=== PATIENT | female | born 2000 | race Caucasian/White ===

== ENCOUNTER 2024-10-26 23:42 | Emergency (ER) | payer SELFPAY ==
[2024-10-27] MEDS ORDERED: ONDANSETRON 4 MG/2 ML VIAL ONE (00:33)
[2024-10-27] MEDS ORDERED: NA CHLORIDE 0.9% 1,000 ML ONE (00:34)
[2024-10-27 00:53] LABS: Specific Gravity 1.029 (1.005-1.030)
[2024-10-27 00:56] LABS: Specific Gravity 1.029 (1.005-1.030); Urine Bacteria 20-50 /HPF (<20); Urine Bilirubin NEGATIVE (Negative); Urine Blood Negative (Negative); Urine Clarity Extremely Turbid (Clear); Urine Color Yellow (Yellow); Urine Culture Reflex Order REFLEXED; Urine Glucose NEGATIVE (Negative); Urine Ketones NEGATIVE (Negative); Urine Microscopic Reflex YN ORDER UMIC; Urine Mucus 2+ /HPF (None Seen); Urine Nitrite NEGATIVE (Negative); Urine Protein 1+ (Negative); Urine RBC <5 /HPF (None Seen); Urine Urobilinogen Normal (Normal); Urine WBC Clump Rare /HPF (None Seen)
[2024-10-27 01:00] LABS: Absolute Basophils 0.1 K/uL (0-0.5); Absolute Eosinophils 0.2 K/uL (0-0.5); Absolute Lymphocytes (CBC) 3.2 K/uL (0.7-4.9); Absolute Monocytes 0.7 K/uL (0.1-1.3); Absolute Neutrophil 3.6 K/uL (1.8-8.0); Basophils % 0.8 % (0-1.3); Hematocrit 39.4 % (36.0-45.0); Lymphocytes % 40.8 % (15.3-44.8); MCH 31.9 pg (27.0-35.0); MCHC 35.5 g/dL (32.0-36.0); MCV 89.8 fL (80-100); Monocytes % 9.4 % (3.3-12.3); Nucleated Red Blood Cells % 0.1 % (0-0); Platelets 305 thou/uL (152-406); RBC Red Blood Cell Count 4.39 M/uL (3.86-4.86); Red Cell Distribution Width 12.5 % (12.1-15.2)
[2024-10-27 01:05] LABS: Barbiturates NEGATIVE (NEGATIVE); Benzodiazepines NEGATIVE (NEGATIVE); Cocaine NEGATIVE (NEGATIVE); METHAMPHETAM NEGATIVE (NEGATIVE); Methadone NEGATIVE (NEGATIVE); Opiates NEGATIVE (NEGATIVE); Phencyclidine NEGATIVE (NEGATIVE); THC Cannibis POSITIVE (NEGATIVE)
[2024-10-27 01:16] LABS: Albumin 4.1 g/dL (3.4-5.0); Albumin/Globulin Ratio 1.2 (1.1-1.8); Anion Gap 9.3 mEq/L (5.0-15.0); Bilirubin Total 0.5 mg/dL (0.2-1.0); Globulin 3.4 g/dL (2.3-3.5); Potassium 3.3 mEq/L (3.5-5.1); Protein, Total 7.5 g/dL (6.4-8.2); Thyroid Stimulating Hormone 1.28 uIU/mL (0.358-3.740)
[2024-10-27 01:38] LABS: Influenza A Ag Negative; Influenza B Ag Negative; SARS-CoV-2 Antigen Rapid Res Negative (Negative)
[2024-10-27] MEDS ORDERED: CEFTRIAXONE 1000 MG/VIAL ONE (02:47)
[2024-10-27] MEDS ORDERED: droPERidol 5 MG/2 ML VIAL ONE (02:51)
[2024-10-27] MEDS ORDERED: DICYCLOMINE HCL 10 MG CAP ONE (02:51)
[2024-10-27] MEDS ORDERED: KETOROLAC 30 MG/ML INJ ONE (02:51)
[2024-10-27] MEDS ORDERED: PROMETHAZINE INJ 25 MG/ML AMP ONE (02:58)
--- NOTE | 2024-10-27 04:10 | ER ---
Nurse's Notes [facility] Name: Piero White Age: 24 yrs Sex: Female : 2000 Arrival Date: 10/26/2024 Time: 23:42 Bed 7 Private MD: Diagnosis: Acute viral gastroenteritis, nausea vomiting and diarrhea;UTI/ Urinary tract infection, site not specified;Hepatomegaly, not elsewhere classified Presentation: 10/27 00:09 Chief complaint: Patient states: nausea,vomiting, and diarrhea that started about a cp4 week ago. Coronavirus screen: Client denies travel out of the [place] in the last 14 days. At this time, the client does not indicate any symptoms associated with coronavirus-19. Ebola Screen: Patient negative for fever greater than or equal to 101.5 degrees Fahrenheit, and additional compatible Ebola Virus Disease symptoms Patient denies exposure to infectious person. Patient denies travel to an Ebola-affected area in the 21 days before illness onset. No symptoms or risks identified at this time. Initial Sepsis Screen: Does the patient meet any 2 criteria? No. Patient's initial sepsis screen is negative. Does the patient have a suspected source of infection? No. Patient's initial sepsis screen is negative. Risk Assessment: Do you want to hurt yourself or someone else? Patient reports no desire to harm self or others. Onset of symptoms was October 20, 2024. 00:09 Method Of Arrival: Ambulatory cp4 00:09 Acuity: NELSON 3 cp4 Triage Assessment: 00:10 General: Appears in no apparent distress. uncomfortable, Behavior is calm, cooperative, cp4 appropriate for age. Pain: Denies pain. EENT: No signs and/or symptoms were reported regarding the EENT system. Neuro: Level of Consciousness is awake, alert, obeys commands, Oriented to person, place, time, situation. Cardiovascular: Patient's skin is warm and dry. Respiratory: Airway is patent Respiratory effort is even, unlabored. GI: Abdomen is round non-distended, Bowel sounds present X 4 quads. Abd is soft and non tender X 4 quads. Reports diarrhea, nausea, vomiting. : No signs and/or symptoms were reported regarding the genitourinary system. Derm: No signs and/or symptoms reported regarding the dermatologic system. Musculoskeletal: No signs and/or symptoms reported regarding the musculoskeletal system. 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 - Infectious Disease History:: Denies. - Social history:: Smoking status: Patient denies any tobacco usage or history of. Screenin:14 [facility] ED Fall Risk Assessment (Adult) History of falling in the last 3 months, cp4 including since admission No falls in past 3 months (0 pts) Confusion or Disorientation No (0 pts) Intoxicated or Sedated No (0 pts) Impaired Gait No (0 pts) Mobility Assist Device Used No (0 pt) Altered Elimination No (0 pt) Score/Fall Risk Level 0 - 2 = Low Risk Oriented to surroundings, Maintained a safe environment, Assessed \T\ reinforced patient's understanding of fall precautions, Hourly rounding (assess needs \T\ fall precautionary measures) done. Abuse screen: Denies threats or abuse. Denies injuries from another. Nutritional screening: No deficits noted. Tuberculosis screening: No symptoms or risk factors identified. Assessment: 00:14 GI: Abdomen is round non-distended, Bowel sounds present X 4 quads. Abd is soft and non cp4 tender X 4 quads. Reports diarrhea, nausea, vomiting. Vital Signs: 00:09 BP 143 / 96; Pulse 84; Resp 18; Temp 98.6; Pulse Ox 98% ; Weight 136.08 kg; Height 5 cp4 ft. 10 in. ; Pain 0/10; 02:54 BP 114 / 98; Pulse 54; Resp 16; Pulse Ox 98% ; al5 03:02 BP 135 / 77; Pulse 87; Resp 18; Pulse Ox 98% ; cp4 03:30 BP 138 / 98; Pulse 61; Resp 16; Pulse Ox 100% ; al5 00:09 Body Mass Index 43.05 (136.08 kg, 177.8 cm) cp4 00:09 Pain Scale: Adult cp4 ED Course: 10/26 23:44 Patient arrived in ED. jj6 23:56 Berenice Narvaez PA-C [facility]. sb4 23:56 Ryan Manzano MD is Attending Physician. sb4 10/27 00:04 Charisse Young is Primary Nurse. cp4 00:10 Triage completed. cp4 00:10 Arm band placed on right wrist. Patient placed in waiting room. cp4 00:14 Bed in low position. Call light in reach. Side rails up X 1. cp4 00:14 No provider procedures requiring assistance completed. cp4 00:37 Initial lab(s) drawn, by me, sent to lab. Urine collected: clean catch specimen, navarro cp4 colored. Inserted saline lock: 20 gauge in left antecubital area, using aseptic technique. Blood collected. Flushed with 10 mL NS. 02:08 CT Abd/Pelvis - IV Contrast Only In Process Unspecified. EDMS 04:35 Provided Education on: clear liquid diet. cp4 04:35 intact, bleeding controlled, No redness/swelling at site. Pressure dressing applied. cp4 Administered Medications: 00:37 Drug: Ondansetron IVP 4 mg IVP once; over 2 minutes Route: IVP; Site: left antecubital; cp4 04:34 Follow up: Response: No adverse reaction cp4 00:37 Drug: NS 0.9% IV 1000 ml IV at 1 bolus Per protocol; to be given as a bolus over 60 cp4 minutes Route: IV; Rate: 1 bolus; Site: left antecubital; 04:34 Follow up: IV Status: Completed infusion cp4 02:51 Drug: NS 0.9% IV 1000 ml IV at 1 bolus Per protocol; to be given as a bolus over 60 cp4 minutes Route: IV; Rate: 1 bolus; Site: left antecubital; 04:33 Follow up: IV Status: Completed infusion cp4 02:51 Drug: Rocephin - Rocephin (cefTRIAXone) IVPB 1 grams IVPB once over 30 mins; (mix in 50 cp4 mL NS) Route: IVPB; Infused Over: 30 mins; Site: left antecubital; 04:33 Follow up: IV Status: Completed infusion cp4 02:56 Drug: Dicyclomine PO 20 mg PO once Route: PO; cp4 04:34 Follow up: Response: No adverse reaction cp4 02:56 Drug: Droperidol IVP 2.5 mg IVP once Route: IVP; Site: left antecubital; cp4 04:34 Follow up: Response: No adverse reaction cp4 02:56 Drug: Ketorolac IVP 30 mg IVP once Route: IVP; Site: left antecubital; cp4 04:34 Follow up: Response: No adverse reaction cp4 03:01 Drug: Promethazine IM 50 mg IM once Route: IM; Site: right ventrogluteal; cp4 04:33 Follow up: Response: No adverse reaction cp4 Medication: 00:14 VIS not applicable for this client. cp4 Outcome: 04:09 Discharge ordered by . sp4 04:35 Discharged to home ambulatory, cp4 04:35 Condition: stable 04:35 Discharge instructions given to patient, family, Instructed on discharge instructions, follow up and referral plans. medication usage, Demonstrated understanding of instructions, follow-up care, medications, Prescriptions given X 3, 04:36 Patient left the ED. cp4 Signatures: Dispatcher [employer] EDMS Teresa Crain Sophia, PA-C PA-C sb4 Ryan Manzano MD MD sp4 Charisse Young cp4 Vonnie Neri RN RN al5
--- NOTE | 2024-10-27 04:10 | EDPHYS ---
Physician Documentation [facility] Name: Piero White Age: 24 yrs Sex: Female : 2000 Arrival Date: 10/26/2024 Time: 23:42 Bed 7 Private MD: ED Physician Ryan Manzano HPI: 10/27 00:19 This 24 yrs old Female presents to ER via Ambulatory with complaints of sb4 Nausea/Vomiting/Diarrhea, Weakness, Near Syncope. 00:19 patient reports nausea, vomiting, diarrhea, hot flashes, chills, and generalized sb4 weakness for the past 3-4 days. she states that it is worse after she attempts to eat. took 2 tests today, one had a faint positive line. LMP 09/30/24. denies any chronic medical issues. Denies any recent illnesses or URI symptoms. no urinary symptoms. 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 - Infectious Disease History:: Denies. - Social history:: Smoking status: Patient denies any tobacco usage or history of. ROS: 00:19 Respiratory: Negative for shortness of breath, cough, wheezing, and pleuritic chest sb4 pain, 00:19 Constitutional: Positive for fatigue, fever, malaise, 00:19 Abdomen/GI: Positive for nausea, vomiting, and diarrhea, abdominal cramps, 00:19 All other systems are negative, Exam: 00:19 Head/Face: Normocephalic, atraumatic. Eyes: Extra-ocular motions intact. Periorbital sb4 areas with no swelling, redness, or edema. ENT: Mucous membranes moist. Cardiovascular: Regular rate and rhythm with a normal S1 and S2. Respiratory: No increased work of breathing, no retractions or nasal flaring. Abdomen/GI: Soft, non-tender, no distension. Skin: Warm, dry with normal turgor. Normal color with no rashes, no lesions, and no evidence of cellulitis. MS/ Extremity: Pulses equal, no cyanosis. Neurovascular intact. Full, normal range of motion. Neuro: Awake and alert, GCS 15, oriented to person, place, time, and situation. Motor strength 5/5 in all extremities. Sensory grossly intact. 00:19 Constitutional: The patient appears in no acute distress, alert, awake, obese, 00:19 Respiratory: Breath sounds: are clear throughout, Vital Signs: 00:09 BP 143 / 96; Pulse 84; Resp 18; Temp 98.6; Pulse Ox 98% ; Weight 136.08 kg; Height 5 cp4 ft. 10 in. ; Pain 0/10; 02:54 BP 114 / 98; Pulse 54; Resp 16; Pulse Ox 98% ; al5 03:02 BP 135 / 77; Pulse 87; Resp 18; Pulse Ox 98% ; cp4 03:30 BP 138 / 98; Pulse 61; Resp 16; Pulse Ox 100% ; al5 00:09 Body Mass Index 43.05 (136.08 kg, 177.8 cm) cp4 00:09 Pain Scale: Adult cp4 MDM: 10/26 23:56 Medical Screening Exam initiated sb4 10/27 02:36 Differential diagnosis: Nonspecific abd pain, gastritis, pancreatitis, appendicitis, sp4 diverticulitis, viral gastroenteritis, gastroenteritis. 04:07 Data reviewed: vital signs, nurses notes, old medical records, lab test result(s), sp4 radiologic studies, CT scan. Consideration of Admission/Observation Escalation of care including admission/observation considered. ED course: Patient markedly improved after medications. Patient stable for discharge home.. 04:13 ED course: TECHNIQUE: CT of the abdomen and pelvis [with] intravenous contrast. All CT sp4 scans at this facility use dose modulation, iterative reconstruction, and/or weight based dosing when appropriate to reduce radiation dose to as low as reasonably achievable. COMPARISON: None. FINDINGS: Lower thorax: Lung bases are clear Abdomen: Stomach:Within normal limits Liver:No focal lesions. Enlarged. No intrahepatic ductal distention. Gallbladder:Nondistended Pancreas:Within normal limits Spleen:Within normal limits Right kidney:No hydronephrosis. No focal lesion. Left kidney:No hydronephrosis. No focal lesion. Adrenal glands:Within normal limits Vascular structures:Within normal limits Nodes:No lymphadenopathy by size criteria Pelvis: Small bowel:No significant distention. Fluid-filled contents with mild mucosal hyperenhancement. Appendix:Within normal limits Colon:No distention or acute pericolonic edema. Peritoneum: No free intraperitoneal fluid or air. Bones: No acute bone findings. Bladder: Unremarkable. Reproductive organs: No acute findings. Soft tissues: Tiny fat-containing umbilical hernia. Tiny fat-containing supraumbilical ventral abdominal hernia. IMPRESSION: 1. Fluid-filled small bowel contents with mild mucosal hyperenhancement, can be seen in setting of enteritis. 2. Hepatomegaly. . 04:22 ED course: CT revealed signs of enteritis. Also hepatomegaly likely secondary to fatty sp4 liver.. 10/27 00:08 Order name: CBC with Diff; Complete Time: 01:04 sb4 10/27 00:08 Order name: CMP; Complete Time: 01:18 sb4 10/27 00:08 Order name: Lipase; Complete Time: 01:18 sb4 10/27 00:08 Order name: Test, Urine; Complete Time: 00:53 sb4 10/27 00:08 Order name: Urinalysis w/ reflexes; Complete Time: 01:00 sb4 10/27 00:08 Order name: COVID-19 Ag + Flu A+B Ag; Complete Time: 02:30 sb4 10/27 00:17 Order name: UDS; Complete Time: 01:06 sb4 10/27 00:46 Order name: Thyroid Stimulating Hormone; Complete Time: 01:18 EDMS 10/27 01:02 Order name: Urine Culture EDMS 10/27 01:18 Order name: Test, Serum; Complete Time: 02:30 sb4 10/27 01:04 Order name: CT Abd/Pelvis - IV Contrast Only sb4 10/27 00:08 Order name: IV Saline Lock; Complete Time: 00:31 sb4 10/27 00:08 Order name: Labs collected and sent; Complete Time: 00:31 sb4 Administered Medications: 00:37 Drug: Ondansetron IVP 4 mg IVP once; over 2 minutes Route: IVP; Site: left antecubital; cp4 04:34 Follow up: Response: No adverse reaction cp4 00:37 Drug: NS 0.9% IV 1000 ml IV at 1 bolus Per protocol; to be given as a bolus over 60 cp4 minutes Route: IV; Rate: 1 bolus; Site: left antecubital; 04:34 Follow up: IV Status: Completed infusion cp4 02:51 Drug: NS 0.9% IV 1000 ml IV at 1 bolus Per protocol; to be given as a bolus over 60 cp4 minutes Route: IV; Rate: 1 bolus; Site: left antecubital; 04:33 Follow up: IV Status: Completed infusion cp4 02:51 Drug: Rocephin - Rocephin (cefTRIAXone) IVPB 1 grams IVPB once over 30 mins; (mix in 50 cp4 mL NS) Route: IVPB; Infused Over: 30 mins; Site: left antecubital; 04:33 Follow up: IV Status: Completed infusion cp4 02:56 Drug: Dicyclomine PO 20 mg PO once Route: PO; cp4 04:34 Follow up: Response: No adverse reaction cp4 02:56 Drug: Droperidol IVP 2.5 mg IVP once Route: IVP; Site: left antecubital; cp4 04:34 Follow up: Response: No adverse reaction cp4 02:56 Drug: Ketorolac IVP 30 mg IVP once Route: IVP; Site: left antecubital; cp4 04:34 Follow up: Response: No adverse reaction cp4 03:01 Drug: Promethazine IM 50 mg IM once Route: IM; Site: right ventrogluteal; cp4 04:33 Follow up: Response: No adverse reaction cp4 Disposition: 04:06 Co-signature as Attending Physician, Ryan Manzano MD I agree with the assessment sp4 and plan of care. I reviewed the patient's care provided by Advanced Practice Provider \T\ agree w/ the diagnosis \T\ care plan. I personally saw the pt \T\ performed a substantive portion of the visit, incldng all aspects of the (History/Exam/Medical Decision Making). Disposition Summary: 10/27/24 04:09 Discharge Ordered Notes: Location: Home sp4 Problem: new sp4 Symptoms: have improved sp4 Condition: Stable sp4 Diagnosis - Acute viral gastroenteritis, nausea vomiting and diarrhea sp4 - UTI/ Urinary tract infection, site not specified sp4 - Hepatomegaly, not elsewhere classified sp4 Followup: sp4 - With: Private Physician - When: 7 - 10 days - Reason: Recheck today's complaints Discharge Instructions: - Discharge Summary Sheet sp4 - Clear Liquid Diet, Adult, [id number] sp4 Forms: - Patient Portal Instructions sp4 Prescriptions: - Cephalexin 500 mg Oral Capsule - take 1 capsule ORAL route every 12 hours for 10 days; 20 capsule; Refills: 0, sp4 Product Selection Permitted - Lomotil 2.5-0.025 mg Oral tablet - take 1 tablet ORAL route every 6 hours As needed PRN diarrhea; 30 tablet; sp4 Refills: 0, Product Selection Permitted - promethazine 25 mg Oral tablet - take 1 tablet ORAL route every 6 hours As needed PRN nausea; 30 tablet; sp4 Refills: 0, Product Selection Permitted Signatures: Dispatcher [employer] EDBerenice Alvarez PA-C PA-C sb4 Ryan Manzano MD MD sp4 Charisse Young cp4 Corrections: (The following items were deleted from the chart) 00:08 00:08 CBC+H.LAB.BRZ ordered. EDMS EDMS 00:08 00:08 COMPREHENSIVE METABOLIC PANEL+C.LAB.BRZ ordered. EDMS EDMS 00:08 00:08 LIPASE+C.LAB.BRZ ordered. EDMS EDMS 00:08 00:08 Test, Urine+UC.LAB.BRZ ordered. EDMS EDMS 00:08 00:08 Urinalysis+U.LAB.BRZ ordered. EDMS EDMS 00:08 00:08 COVID-19 Ag + Flu A+B Ag+I.LAB.BRZ ordered. EDMS EDMS 00:46 00:18 THYROID STIMULAT HORMONE+C.LAB.BRZ ordered. EDMS EDMS
--- NOTE | 2024-10-27 04:14 | RAD REPORT ---
EXAM DESCRIPTION: Abdomen Pelvis W Contrast RadLex: CT ABDOMEN PELVIS WITH IV CONTRAST CLINICAL HISTORY: 24 years Female; n/v/d;Abd pain;Fever; IV ONLY Bed Name: 7 TECHNIQUE: CT of the abdomen and pelvis [with] intravenous contrast. All CT scans at this facility use dose modulation, iterative reconstruction, and/or weight based dosi ng when appropriate to reduce radiation dose to as low as reasonably achievable. COMPARISON: None. FINDINGS: Lower thorax: Lung bases are clear Abdomen: Stomach: Within normal limits Liver: No focal lesions. Enlarged. No intrahepatic ductal distention. Gallbladder: Nondistended Pancreas: Within normal limits Spleen: Within normal limits Right kidney: No hydronephrosis. No focal lesion. Left kidney: No hydronephrosis. No focal lesion. Adrenal glands: Within normal limits Vascular structures: Within normal limits Nodes: No lymphadenopathy by size criteria Pelvis: Small bowel: No significant distention. Fluid-filled contents with mild mucosal hyperenhancement. Appendix: Within normal limits Colon: No distention or acute pericolonic edema. Peritoneum: No free intraperitoneal fluid or air. Bones: No acute bone findings. Bladder: Unremarkable. Reproductive organs: No acute findings. Soft tissues: Tiny fat-containing umbilical hernia. Tiny fat-containing supraumbilical ventral abdomi nal hernia. IMPRESSION: 1. Fluid-filled small bowel contents with mild mucosal hyperenhancement, can be seen in setting of enteritis. 2. Hepatomegaly. Electronically signed by: Jeffrey Kirby MD 10/27/2024 04:09 AM CDT TYG Due to temporary technical issues with the PACS/Amanda Huff [employer] reporting system, reports are being karon d by the in-house radiologist without review as a courtesy to ensure prompt reporting the interpreting radiologist is fully responsible for the content of the report. Transcribed Date/Time: 10/27/2024 4:14 AM
[2024-10-27 11:10] VITALS: TEMP 98.6
[2024-10-27 11:13] VITALS: BP 138/98; O2SAT 100
== END 2024-10-27 04:36 | disposition home or self-care (01) ==
LOC: ER 23:42
DX: A08.4 Viral intestinal infection, unspecified (principal); N39.0 Urinary tract infection, site not specified; R16.0 Hepatomegaly, not elsewhere classified; Z11.52 Encounter for screening for COVID-19
CPT/HCPCS: 36415; 74177; 80053; 80307; 81001; 81025; 83690; 84443; 84703; 85025; 87086; 87088; 87428; J0696; J1790; J2405; J2550; J7030; Q9967